=== PATIENT | male | born 1970 | race Caucasian/White ===

== ENCOUNTER 2021-05-20 09:33 | Observation (INO) | payer OTHER, SELFPAY ==
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
--- NOTE | ~2021-05-20 | XR_ITS ---
EXAMINATION: XR tibia fibula LT 2V EXAM DATE: 05/20/2021 11:15 INDICATION: wounds, edema, erythema. TECHNIQUE: Left tibia/fibula frontal and lateral projections obtained and reviewed. Correlation is ma de to contralateral leg same date. FINDINGS: Left tibial and fibular shafts unremarkable. There are no acute fractures or dislocations identified. There is no subcutaneous gas. Evidence of diffuse subcutaneous edema. Small calcaneal i nferior spur. There are no radiopaque foreign bodies. IMPRESSION: Left leg, ankle subcutaneous edema. Reviewed, dictated and finalized at location B.
--- NOTE | ~2021-05-20 | XR_ITS ---
EXAMINATION: XR chest 2V EXAM DATE: 05/20/2021 11:15 INDICATION: Lower extremity edema, redness. TECHNIQUE: Frontal and lateral projections of the chest obtained and reviewed. There is no prior hector dy for comparison. FINDINGS: Borderline heart size. Pulmonary vascular congestion. No confluent consolidation, pneumotho rax or pleural effusion suspected. Mild thoracic spondylosis. IMPRESSION: Borderline heart size. Clear lungs. Reviewed, dictated and finalized at location B.
[2021-05-20 09:41] VITALS: BP 139/94; PULSE 108; RESP 22; O2SAT 95
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
[2021-05-20 12:03] VITALS: BP 138/76; PULSE 94; RESP 17; TEMP 36.7; O2SAT 93
[2021-05-20 12:17] LABS: Basophils Absolute Auto 0.1 K/mm3 (0.0-0.1); Basophils Percent Auto 0.5 % (0.2-1.2); Eosinophils Absolute Auto 0.1 K/mm3 (0-0.3); Eosinophils Percent Auto 0.6 % (0-4.4); Hematocrit 40.7 % (42.0-52.0); Hemoglobin 12.7 g/dL (14.0-18.0); Immature Granulocyte Absolute 0.54 K/mm3 (0.00-0.031); Immature Granulocyte Percent A 3.2 % (0-0.5); Lymphocytes Absolute Auto 1.59 K/mm3 (0.9-3.2); Lymphocytes Percent Auto 9.3 % (18.3-44.2); Mean Corpuscular HGB Conc 31.2 g/dl (32-36); Mean Corpuscular Hemoglobin 27.7 pg (26-34); Mean Corpuscular Volume 88.9 fl (80-100); Mean Platelet Volume 8.6 fl (7.4-10.4); Monocytes Absolute Auto 1.4 K/mm3 (0.1-0.6); Monocytes Percent Auto 8.1 % (2.6-8.5); Neutrophils Absolute Auto 13.3 K/mm3 (1.3-6.7); Neutrophils Percent Auto 78.3 % (45.5-73.1); Platelet Count Result 414 k/mm3 (150-375); Red Blood Count 4.58 M/mm3 (4.6-6.20); Red Cell Distribution Width 15.1 % (11.5-14.5)
[2021-05-20 12:36] LABS: Lactic Acid Reflex 1.8 mmol/L (0.7-2.1)
[2021-05-20 12:52] LABS: Erythrocyte Sedimentation Rate 21 mm/hr (0-20)
[2021-05-20] MEDS: HYDROcodone/acetaminophen (*CRX) 5-325 MG TABLET 1 TAB PO ×2 (15:30→21:07)
[2021-05-20] MEDS: SILVERGEL (ELTA) 45 ML 1 APPLIC TOPICAL (15:30)
[2021-05-20 15:34] VITALS: BP 144/79; PULSE 93; RESP 17; O2SAT 94
[2021-05-20 15:39] LABS: Anion Gap 7 mmol/L (8-16); Blood Urea Nitrogen 13 mg/dL (9-20); Calcium 9.1 mg/dL (8.4-10.2); Carbon Dioxide 29 mmol/L (22-30); Chloride 96 mmol/L (98-107); Estimated CRCL calculation 61 ml/min; Estimated Glomerular Filt Rate 38; Glucose 144 mg/dL (65-110); Potassium 4.1 mmol/L (3.4-5.0); Sodium 132 mmol/L (137-145)
[2021-05-20 15:49] LABS: NT Pro B Type Natriuretic Pept 207 pg/mL (5-100)
[2021-05-20 15:51] LABS: Glucose Point of Care 132 mg/dl (65-105)
[2021-05-20 16:07] LABS: CRP 22.9 mg/dL (<1.0)
[2021-05-20 17:00] VITALS: BP 146/85; PULSE 95; RESP 18; TEMP 35.9; O2SAT 90
--- NOTE | 2021-05-20 17:13 | PC.NURSE ---
This patient, Nehemiah Sanchez, was admitted to [facility] Surg Room 301-01 on 05/20/21 @ 1712. Patient/family oriented to hospital policies and general routines including ID bracelet, bed and alarms, visiting hours, pain management, procedures, bathroom and other care routines, personal items, smoking policy, room service/diet, and visiting hours. Information on how to activate the Rapid Response Team has been discussed. Patient/Family are encouraged to report perceived risks to care and to ask questions if they do not understand what they are told or what they should do.
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
[2021-05-20] MEDS: SODIUM CHLORIDE 0.9% IV 1,000 ML 100 ML IV CONT (21:07)
[2021-05-20 21:33] VITALS: BP 135/71; PULSE 92; RESP 18; TEMP 36.2; O2SAT 94
[2021-05-21] MEDS: HYDROcodone/acetaminophen (*CRX) 5-325 MG TABLET 1 TAB PO ×2 (04:25→18:20)
[2021-05-21 06:00] VITALS: BP 108/53; PULSE 86; RESP 18; TEMP 36.1; O2SAT 97
[2021-05-21 06:38] LABS: Hematocrit 37.7 % (42.0-52.0); Hemoglobin 11.7 g/dL (14.0-18.0); Mean Corpuscular Hemoglobin 27.5 pg (26-34); Mean Corpuscular Volume 88.7 fl (80-100); Mean Platelet Volume 8.7 fl (7.4-10.4); Platelet Count Result 376 k/mm3 (150-375); Red Blood Count 4.25 M/mm3 (4.6-6.20); Red Cell Distribution Width 15.2 % (11.5-14.5); White Blood Count 14.7 K/mm3 (4.5-10.0)
[2021-05-21 07:03] LABS: Hemoglobin A1C 5.6 % (<5.7)
[2021-05-21 07:10] LABS: Alanine Aminotransferase 13 U/L (4-50); Albumin Level 3.4 g/dL (3.5-5.1); Alkaline Phosphatase 152 U/L (38-126); Anion Gap 5 mmol/L (8-16); Aspartate Amino Transferase 27 U/L (17-59); Bilirubin,Total 0.4 mg/dL (0.2-1.3); Blood Urea Nitrogen 12 mg/dL (9-20); Calcium 8.6 mg/dL (8.4-10.2); Carbon Dioxide 32 mmol/L (22-30); Chloride 97 mmol/L (98-107); Estimated CRCL calculation 60 ml/min; Estimated Glomerular Filt Rate 38; Glucose 119 mg/dL (65-110); Magnesium 2.2 mg/dL (1.6-2.3); Potassium 3.8 mmol/L (3.4-5.0); Sodium 134 mmol/L (137-145)
[2021-05-21] MEDS: SILVERGEL (ELTA) 45 ML 1 APPLIC TOPICAL (09:04)
[2021-05-21] MEDS: ENOXAPARIN 40 MG/0.4 ML SYRINGE SUB-Q (09:05)
--- NOTE | 2021-05-21 09:27 | PC.NURSE ---
Patient presents yelling at staff; States he can better control pain at home, education provided that over the counter topicals may contribute to worsening cellulitis. Call to provider, Yvette Cheung, to request attention to pain medication to assist in relieving pain. Patient demonstrates anxious behaviors, message left for provider at time of call to address pain medication. Patient states intent to just leave and go home, I can take care of this pain better at home; you people are killing me; oh it hurts so bad; I got kids at home, I can't stay here . RN waiting for return call from provider.
--- NOTE | 2021-05-21 09:59 | PM.IMPN ---
Progress Note: A&P Assessment and Plan (1) Venous ulcers of both lower extremities: Code(s): I83.019 - Varicose veins of right lower extremity with ulcer of unspecified site; I83.029 - Varicose veins of left lower extremity with ulcer of unspecified site; L97.919 - Non-pressure chronic ulcer of unspecified part of right lower leg with unspecified severity; L97.929 - Non-pressure chronic ulcer of unspecified part of left lower leg with unspecified severity Status: Acute Assessment and Plan: The patient presented to the emergency department for evaluation of bilateral lower extremity wounds that he reports have been present for about a week. It appears that he has chronic venous insufficiency with venous stasis and now has ulcerations that have become infected. He has been started on Zosyn #2 per antibiotic stewardship recommendations Wound culture growing Gram Positive Cocci, pending sensitivities and official culture results --> Will add Vancomycin #1 due to growth and further coverage for possible Staph or MRSA until results finalize. Blood cultures are negative to date We discussed the importance of keeping his legs elevated as much as possible. Analgesics are available as needed. Wound nurse has been consulted for further recommendations. He may very well need to be referred to a vascular surgeon as an outpatient depending on how he responds to treatment and he will need venous and arterial Dopplers when ulcerations improve. Continue monitoring tomorrow. (2) Cellulitis of both lower extremities: Code(s): L03.115 - Cellulitis of right lower limb; L03.116 - Cellulitis of left lower limb Status: Acute Assessment and Plan: See above (3) Essential (primary) hypertension: Code(s): I10 - Essential (primary) hypertension Status: Chronic Assessment and Plan: Blood pressures were reviewed and they have been running in the 140-130s however the patient admits that he has not taken his antihypertensives for several months. We will continue to monitor blood pressures over the next 24 hours and initiate antihypertensives if indicated. (4) Tobacco use disorder: Code(s): F17.200 - Nicotine dependence, unspecified, uncomplicated Status: Acute Assessment and Plan: Smoking cessation is imperative and was discussed. He denies the need for a nicotine patch. (5) Morbid obesity: Code(s): E66.01 - Morbid (severe) obesity due to excess calories Status: Chronic (6) Renal insufficiency: Code(s): N28.9 - Disorder of kidney and ureter, unspecified Status: Acute Assessment and Plan: He was also found to have an elevated creatinine of 1.90, and it is stable today. He has not seen a doctor in years. I told him about his renal dysfunction and need for follow up with PCP for further work up. (7) Hyperglycemia: Code(s): R73.9 - Hyperglycemia, unspecified Status: Acute Assessment and Plan: He has no known history of diabetes with HgbA1c 5.6%. Time Spent With Patient Time with patient: 25 - 35 minutes Subjective Date/time seen: 05/21/21 09:59 Interval history: The patient is a 51-year-old man with no chronic medical history and has not seen a primary care provider in years, who presented to the emergency room with increased redness, swelling, pain, ulcers to his bilateral lower extremities. Patient states about 1 week ago he developed wounds to his left leg. He states due to the pain he has been sleeping sitting up with his legs dangling down. Since then he has had increased swelling, pain, redness and drainage from his wounds. He decided to come to the emergency room for further evaluation. Patient was found to have leukocytosis at 17,000, elevated neutrophil count in the setting of cellulitis of his lower extremities. Creatinine was elevated at 1.9, with a normal BUN, and I am unsure if this is his baseline re
[2021-05-21 14:00] VITALS: BP 134/71; PULSE 76; RESP 18; TEMP 36.9; O2SAT 93
[2021-05-21 22:00] VITALS: BP 107/49; PULSE 78; RESP 18; TEMP 36.1; O2SAT 95
[2021-05-21] MEDS: ACETAMINOPHEN 325 MG TABLET 650 MG PO (23:23)
[2021-05-22] MEDS: HYDROcodone/acetaminophen (*CRX) 5-325 MG TABLET 1 TAB PO ×3 (00:30→11:35)
[2021-05-22] MEDS: HYDROmorphone HCL INJ (*CRX) 1 MG/ML SYR IV PUSH (05:31)
--- NOTE | 2021-05-22 06:19 | PC.NURSE ---
Pt. became extremely agitated and in pain wanted a dressing change on his legs. Gave norco 5 for pain and changed his dressing. Pt. had several complaints on his care and was yelling profanities and threatening to leave. I called and got more pain meds orders and let the charge nurse know of the situation.
[2021-05-22 06:20] LABS: Basophils Absolute Auto 0.1 K/mm3 (0.0-0.1); Basophils Percent Auto 1.1 % (0.2-1.2); Eosinophils Absolute Auto 0.1 K/mm3 (0-0.3); Eosinophils Percent Auto 1.4 % (0-4.4); Immature Granulocyte Absolute 0.33 K/mm3 (0.00-0.031); Immature Granulocyte Percent A 4.6 % (0-0.5); Lymphocytes Absolute Auto 1.01 K/mm3 (0.9-3.2); Mean Corpuscular HGB Conc 31.6 g/dl (32-36); Mean Corpuscular Hemoglobin 27.8 pg (26-34); Mean Platelet Volume 8.8 fl (7.4-10.4); Monocytes Absolute Auto 0.6 K/mm3 (0.1-0.6); Monocytes Percent Auto 8.5 % (2.6-8.5); Neutrophils Absolute Auto 5.1 K/mm3 (1.3-6.7); Neutrophils Percent Auto 70.4 % (45.5-73.1); Platelet Count Result 392 k/mm3 (150-375); Red Blood Count 4.32 M/mm3 (4.6-6.20); Red Cell Distribution Width 15.2 % (11.5-14.5); White Blood Count 7.2 K/mm3 (4.5-10.0)
[2021-05-22 06:53] LABS: Anion Gap 7 mmol/L (8-16); Blood Urea Nitrogen 12 mg/dL (9-20); CRP 12.1 mg/dL (<1.0); Calcium 8.3 mg/dL (8.4-10.2); Carbon Dioxide 27 mmol/L (22-30); Chloride 100 mmol/L (98-107); Estimated CRCL calculation 76 ml/min; Estimated Glomerular Filt Rate 50; Glucose 158 mg/dL (65-110); Potassium 3.6 mmol/L (3.4-5.0); Sodium 134 mmol/L (137-145)
[2021-05-22] MEDS: ENOXAPARIN 40 MG/0.4 ML SYRINGE SUB-Q (08:11)
[2021-05-22] MEDS: SILVERGEL (ELTA) 45 ML 1 APPLIC TOPICAL (08:11)
[2021-05-22 11:47] VITALS: BP 126/72; PULSE 78; RESP 16; TEMP 36.4; O2SAT 95
--- NOTE | 2021-05-22 13:18 | PM.DS ---
DS: Admitting Diagnosis Discharge Date 05/22/21 Admitting Diagnosis Leg swelling, redness, pain DS: Discharge Diagnosis Discharge Diagnosis (1) Venous ulcers of both lower extremities: Code(s): I83.019 - Varicose veins of right lower extremity with ulcer of unspecified site; I83.029 - Varicose veins of left lower extremity with ulcer of unspecified site; L97.919 - Non-pressure chronic ulcer of unspecified part of right lower leg with unspecified severity; L97.929 - Non-pressure chronic ulcer of unspecified part of left lower leg with unspecified severity Status: Acute Assessment and Plan: The patient is a 51-year-old man with no chronic medical history and has not seen a primary care provider in years, who presented to the emergency room with increased redness, swelling, pain, ulcers to his bilateral lower extremities. Patient states about 1 week ago he developed wounds to his left leg. He states due to the pain he has been sleeping sitting up with his legs dangling down. Since then he has had increased swelling, pain, redness and drainage from his wounds. He decided to come to the emergency room for further evaluation. Patient was found to have leukocytosis at 17,000, elevated neutrophil count in the setting of cellulitis of his lower extremities. Creatinine was elevated at 1.9, with a normal BUN, and I am unsure if this is his baseline renal function. Hemoglobin A1c is normal at 5.6%. Lactic acid was normal at 1.8. CRP elevated at 22. TSH normal. BNP normal at 207. The patient was admitted into the hospital with acute cellulitis from chronic venous stasis changes of his legs and venous stasis ulcers. He was started on broad-spectrum antibiotics with IV Zosyn and admitted for further evaluation and monitoring. He has been started on Zosyn #3 and Vanco #2 after wound culture was growing Staph. Wound Culture now showing growth of Staphylococcus aureus and Pseudomonas. Pending sensitivity report. Blood cultures are negative to date Patient is feeling much better today and only has leg pain with dressing changes. States the swelling is improving as well as the redness. We discussed the importance of keeping his legs elevated as much as possible and sleeping in a bed or having his legs raised while sleeping. We have shown him how to apply silvergel and dress his wounds daily. Will prescribe [place] as needed for severe pain, otherwise recommended Tylenol. He will be discharged on Clindamycin and Augmentin for a total of 14 days and Probotics to prevent diarrhea He may very well need to be referred to a vascular surgeon as an outpatient depending on how he responds to treatment and he will need venous and arterial Dopplers when ulcerations improve. He states he will call a PCP on Sunday to set up an appointment for follow up and going to try and get home health to help with wounds from new PCP. Discharged in stable condition. Feeling better. Return to ER warnings given. He understands and agrees with the plan. All questions answered. (2) Cellulitis of both lower extremities: Code(s): L03.115 - Cellulitis of right lower limb; L03.116 - Cellulitis of left lower limb Status: Acute Assessment and Plan: See above (3) Essential (primary) hypertension: Code(s): I10 - Essential (primary) hypertension Status: Chronic Assessment and Plan: Blood pressures are running well now that his pain is controlled and infection being treated, 126/72. (4) Tobacco use disorder: Code(s): F17.200 - Nicotine dependence, unspecified, uncomplicated Status: Acute Assessment and Plan: Smoking cessation is imperative and was discussed for 3 minutes. He is interested in quitting after discharge. (5) Morbid obesity: Code(s): E66.01 - Morbid (severe) obesity due to excess calories Status: Chronic (6) Renal insufficiency: Code(s): N28.9 - Disorder of kidne
== END 2021-05-22 12:50 | disposition home or self-care (01) ==
LOC: ANHED 16:49 → ANH3MEDSUR 16:57
PROVIDERS: Physician Assistant; Admitting Provider Internal Medicine; Emergency Provider Emergency Medicine; Visit Provider Internal Medicine
DX: L03.115 Cellulitis of right lower limb (principal); B95.62 Methicillin resistant Staphylococcus aureus infection as the cause of diseases classified elsewhere; B96.5 Pseudomonas (aeruginosa) (mallei) (pseudomallei) as the cause of diseases classified elsewhere; L03.116 Cellulitis of left lower limb; I83.009 Varicose veins of unspecified lower extremity with ulcer of unspecified site; L97.919 Non-pressure chronic ulcer of unspecified part of right lower leg with unspecified severity; L97.929 Non-pressure chronic ulcer of unspecified part of left lower leg with unspecified severity; I10 Essential (primary) hypertension; E78.5 Hyperlipidemia, unspecified; E66.01 Morbid (severe) obesity due to excess calories; F17.210 Nicotine dependence, cigarettes, uncomplicated; N28.9 Disorder of kidney and ureter, unspecified; R73.9 Hyperglycemia, unspecified; Z68.39 Body mass index [BMI] 39.0-39.9, adult
CPT/HCPCS: 36415; 71046; 73590; 80048; 80053; 82948; 83036; 83605; 83735; 83880; 84443; 85025; 85027; 85652; 86140; 87040; 87070; 87077; 87147; 87186; 87205; 96361; 96365; 96366; 96367; 96372; 96375; 99285; A9270; G0378; G0379; J1170; J1650; J2543; J3370; J7030

== ENCOUNTER 2021-06-14 14:43 | Outpatient (CLI) | payer OTHER, SELFPAY ==
--- NOTE | ~2021-06-14 | US_ITS ---
EXAMINATION: US art doppler w press LE BI DATE: 06/14/2021 15:35 INDICATION: Bilateral lower limb cellulitis with ulcers TECHNIQUE: Segmental pressures and plethysmographic and Doppler waveforms of the brachial and lower e xtremity arteries were obtained. COMPARISON: None. FINDINGS: Right and left brachial artery pressures of 119 mm Hg and 123 mm Hg, respectively, are concordant (no rmal difference <= 30 mmHg). The right and left high-thigh pressure indices are unable to be obtained due to inability to occlude the vessels. The right ankle-brachial index (SUKHWINDER) is 1.19 (normal >= 0.9-1). The right great toe-brachial index (T BI) is 0.84 (normal >= 0.6-0.8). The right lower extremity segmental pressure gradients are increased between the right above and [id number] popliteal artery (normal gradients <= 20-30 mmHg between adjacent levels on the same leg or the same levels on the two legs). Arterial waveforms are biphasic with brisk systolic upstrokes throughout the arteries of the right lower limb. The left SUKHWINDER is 1.19. The left TBI is 0.87. The left lower extremity segmental pressure gradients are normal. Arterial waveforms are biphasic with brisk systolic upstrokes throughout the left lower limb . IMPRESSION: 1. Normal SUKHWINDER's and TBI's bilaterally. No significant arterial occlusive disease. Reviewed, dictated and finalized at location A. EN WORKER IMPRESSION: 1. Normal SUKHWINDER's and TBI's bilaterally. No significant arterial occlusive diseas e.
== END 2021-06-14 14:44 | disposition home or self-care (01) ==
LOC: ANHIMG 14:48
PROVIDERS: PCP Emergency Medicine; Visit Provider Emergency Medicine
DX: L03.116 Cellulitis of left lower limb (principal); L03.115 Cellulitis of right lower limb
CPT/HCPCS: 93923